=== PATIENT | male | born 1960 | race Two or more races ===

== ENCOUNTER → 2016-07-02 | Day surgery (SDC) | payer SELFPAY ==
[~2016-07-02] VITALS: Ht 165.1 cm; Wt 70.0 kg
[~2016-07-02] MED LIST: FLONASE 50 MCG/16 GM NOSE; MULTIVITAMINS1 EACH PO; NEXIUM40 MG PO
== END ==
LOC: GPOC 07-01 15:00 → GSDC 05:44
DX: K60.2 Anal fissure, unspecified (principal); K60.3 Anal fistula; Z53.8 Procedure and treatment not carried out for other reasons; I10 Essential (primary) hypertension; Z79.899 Other long term (current) drug therapy; Z98.890 Other specified postprocedural states
CPT/HCPCS: J0690; J0694; J1644; J2001; J2720; J7120

== ENCOUNTER → 2016-09-23 | Outpatient (CLI) | payer SELFPAY | END | disposition disaster alternative care site (69) | LOC: GRAD 10:33 | DX: R14.0 Abdominal distension (gaseous) (principal) | CPT/HCPCS: A9541 ==